=== PATIENT | female | born 1995 | race Two or more races ===

== ENCOUNTER 2018-06-16 17:46 | Emergency (ER) | payer OTHER ==
[~2018-06-16] VITALS: Ht 154.9 cm; Wt 63.5 kg
--- NOTE | 2018-06-16 18:44 | Emergency Room Report ---
History of Present Illness General Chief Complaint: Animal Bite Source: Patient Present Illness HPI Pt. presents to the ED c/o Bite/puncture wound in addition to multiple cat scratches to the bilateral hands and forearms. Pt. reports 3/10 in severity pain at this time and has not taken pain medication [employer]. Patient reports that she sustained these at work. Patient is bleeding at this time. pt reports she is UTD with tetanus, and reports Rabies on animal is UTD. pt. reports some swelling about the scratches, denies erythema, itching, or symptoms of allergic reaction such as swelling of the lips/tongue/airway, wheezing or difficulty breathing. Allergies: Coded Allergies: No Known Allergies (Unverified , 06/16/18) Patient History Past Medical History: see triage record Past Surgical History: none Pertinent Family History: none Last Menstrual Period: May Now: No Immunizations: UTD Reviewed Nursing Documentation: PMH: Agreed; PSxH: Agreed Nursing Documentation-PMH Past Medical History: No Stated History Review of Systems All Other Systems: negative except mentioned in HPI Physical Exam Vital Signs Date Time Temp Pulse Resp B/P (MAP) Pulse Ox O2 Delivery O2 Flow Rate FiO2 06/16/18 17:52 98.8 60 15 128/77 97 Room Air 98.8 Sp02 EP Interpretation: reviewed, normal General Appearance: no apparent distress, alert, GCS 15, non-toxic Head: normocephalic, atraumatic ENT: hearing grossly normal, no angioedema, normal voice Neck: full range of motion Respiratory: lungs clear, normal breath sounds, speaking full sentences Cardiovascular #1: regular rate, rhythm, normal capillary refill Musculoskeletal: back normal, gait/station normal, normal range of motion, non- tender Neurologic: alert, oriented x3, responsive, motor strength/tone normal, sensory intact, speech normal, grossly normal Psychiatric: judgement/insight normal Skin: normal color, no rash, warm/dry, well hydrated, other - multiple cat scratches on bilateral hands and forearms, there is one puncture wound to the dorsum of the hand and one on the volar wrist. no bleeding at this time, no d/c or obvious fb's. Lymphatic: no adenopathy Medical Decision Making PA Attestation Dr. cramer is my supervising Physician whom patient management has been discussed with. Diagnostic Impression: Primary Impression: Cat bite involving extremity Additional Impressions: Cat scratch of forearm Qualified Codes: S50.811A - Abrasion of right forearm, initial encounter; W55.03XA - Scratched by cat, initial encounter Cat scratch of hand Qualified Codes: S60.511A - Abrasion of right hand, initial encounter; W55.03XA - Scratched by cat, initial encounter ER Course Pt. presents to the ED c/o Bite/puncture wound in addition to multiple cat scratches to the bilateral hands and forearms. Pt. reports 3/10 in severity pain at this time and has not taken pain medication [employer]. Patient reports that she sustained these at work. Patient is bleeding at this time. pt reports she is UTD with tetanus, and reports Rabies on animal is UTD. pt. reports some swelling about the scratches, denies erythema, itching, or symptoms of allergic reaction such as swelling of the lips/tongue/airway, wheezing or difficulty breathing. Ddx considered but are not limited to Cellulitis, rabies, fracture, neurovascular compromise of extremity. Vital signs: are WNL, pt. is afebrile H&PE are most consistent with multiple cat scratches on bilateral hands and forearms, there is one puncture wound to the dorsum of the hand and one on the volar wrist. no bleeding at this time, no d/c or obvious fb's. ORDERS: none required at this time, the diagnosis is clinical ED INTERVENTIONS: -Wound irrigation performed by residential service technician. DISCHARGE: At this time pt. is stable for d/c to home. Will provide printed patient care instructions, and any necessary prescriptions. Care plan and follow up instructions have been discussed with the patient prior to discharge. * Augmentin rx Last Vital Signs Date Time Temp Pulse Resp B/P (MAP) Pulse Ox O2 Delivery O2 Flow Rate FiO2 06/16/18 17:52 98.8 60 15 128/77 97 Room Air 98.8 Disposition: HOME, SELF-CARE Condition: Stable Scripts Ibuprofen* (MOTRIN*) 600 Mg Tablet 600 MG ORAL THREE TIMES A DAY, #20 TAB 0 Refills Prov: Miladys Daniel 06/16/18 Amoxicillin/Potassium Clav 875-125* (AUGMENTIN 875-125 TABLET*) 1 Each Tablet 1 TAB ORAL TWICE A DAY for 7 Days, #14 TAB Prov: Miladys Daniel 06/16/18 Departure Forms: Return to Work Return to Work Date: Jun 18, 2018 Work Restrictions: None Return to Full Activity: Jun 18, 2018 Patient Instructions: Animal Bite Additional Instructions: Take medications as directed. Follow up with a Primary Care Provider in 3-5 days, even if your symptoms have resolved. Return sooner to ED if new symptoms occur, or current symptoms become worse. - Please note that this Emergency Department Report was dictated using [email or web address] technology software, occasionally this can lead to erroneous entry secondary to interpretation by the dictation equipment. Miladys Daniel Jun 16, 2018 18:44
[2018-06-16] MEDS ORDERED: IBUPROFEN600 MG ORAL (18:47)
[2018-06-16] MEDS ORDERED: AUGMENTIN 875-1 EAC1 ORAL (18:47)
[2018-06-16 18:55] VITALS: BP 124/79
[2018-06-16 19:05] VITALS: BP 124/79
== END 2018-06-16 19:06 | disposition home or self-care (01) ==
LOC: EMR 18:35
DX: S50.811A Abrasion of right forearm, initial encounter (principal); S60.511A Abrasion of right hand, initial encounter; W55.03XA Scratched by cat, initial encounter
CPT/HCPCS: 99283